=== PATIENT | male | born 1970 | race African-American/Black ===

== ENCOUNTER 2016-05-07 14:34 | Emergency (ER) | payer OTHER ==
[~2016-05-07] VITALS: Ht 170.2 cm; Wt 132.4 kg
--- NOTE | 2016-05-07 15:41 | ED CARDIAC/CP/PALPITATIONS ---
History of Present Illness General Chief Complaint: Chest Pain Stated Complaint: CHEST PAIN, PALPITAIONS Source: patient, old records Exam Limitations: no limitations Vital Signs & Intake/Output Vital Signs & Intake/Output ED Intake and Output 05/08 0000 05/07 1200 Intake Total Output Total Balance Patient 292 lb Weight Allergies Coded Allergies: NO KNOWN ALLERGIES (03/20/13) Reconcile Medications Mometasone Furoate (Nasonex) 50 MCG SPRAY.PUMP 1 SPRAY NASB DAILY ALLERGY ( Reported) Montelukast Sodium 10 MG TABLET 1 TAB PO DAILY ALLERGY (Reported) Phenytoin Sodium Extended 100 MG CAPSULE 1 CAP PO TID N (Reported) Triage Note: PT STATES THAT WHILE AT WORK SITTING AT DESK HE HAD ABOUT 4 SHARP PAINS L SIDE CHEST AND THEN THEY STOPPED, STATES THAT HE STILL HAS A DULL PAIN L SIDE CHEST. DENIES SOB , AND PAIN IS NON RADIATING Triage Nurses Notes Reviewed? yes Onset: Abrupt Duration: day(s): (2), better, intermittent, waxing and waning Timing: single episode today Quality/Severity: mild, dull Location: LEFT SIDED Radiation: no radiation Activities at Onset: none Prior Chest Pain/Card Workup: no prior chest pain Aspirin Today: no aspirin today Associated Symptoms: DENIES HPI: This is a 46-year-old male with history of seizure disorder status post TBI presents emergency room after he developed sudden onset of left-sided chest wall pain described as dull and aching pain that was nonradiating. There are no associated symptoms symptoms got better after a few minutes however states since then he's continued to have a mild dull pain. There is no arm neck or back pain no pain with inspiration no shortness of breath no abdominal pain nausea vomiting or diarrhea. He states he had a similar episode when he was 7 years old for which she came to the emergency room and states everything was okay. No family history of sudden cardiac disease. No recent immobility cough or hemoptysis no leg pain or swelling He does not smoke no drug use (BRIDGETTE WILKES,TITA) Past History Travel History Traveled to [place] past 21 day No Medical History Any Pertinent Medical History? see below for history Neurological: seizure EENT: allergies Cardiovascular: NONE Respiratory: NONE Gastrointestinal: NONE Hepatic: NONE Renal: NONE Musculoskeletal: NONE Blood Disorders: NONE Cancer(s): NONE OCCUPATIONAL THERAPY DIRECTOR/Reproductive: NONE Surgical History Surgical History: non-contributory Psychosocial History What is your primary language Peruvian Tobacco Use: Never used ETOH Use: denies use Illicit Drug Use: denies illicit drug use Family History Hx Contributory? No (TITA HORTON) Review of Systems Review of Systems Constitutional: Reports: see HPI. All Other Systems: Reviewed and Negative Comments Review of systems: See HPI, All other systems negative. Constitutional, no chills no fever, no malaise HEENT:no sore throat no congestion, no ear pain Cardiovascular: chest pain , no palpitation , no orthopnea no ankle swelling Skin, no jaundice no rashes, no change in skin Respiratory: No dyspnea no cough no sputum GI: No nausea no vomiting, no diarrhea, : No dysuria Muscle skeletal: No joint pain, no joint swelling, no back pain Neurologic: No numbness no headache Psych: No stress Heme/endocrine: No bruising no bleeding Immunology: No lymphadenopathy, (TITA HORTON) Physical Exam Physical Exam General Appearance: well developed/nourished, no apparent distress, alert, awake Cardiovascular: regular rate/rhythm Comments: Well-developed well-nourished person in no acute distress HEENT: Normal EENT exam; PERRL, EOMI. HEAD is atraumatic. moist mucous membranes. Neck: Supple, no lymphadenopathy, normal range of motion Back: Nontender,. Full range of motion Cardiovascular: Regular rate and rhythms no murmurs rubs or gallops, normal JVP Respiratory: Chest nontender.There were no bony deformities, no asymmetry. No respiratory distress. Patient speaking in full complete sentences. Breath sounds clear to auscultation bilaterally: NO W/R/R Abdomen: Soft, nontender nondistended Extremity: No edema, full range of motion of extremities, Neuro: Alert oriented x3, motor sensory normal. There were no obvious focal neurologic abnormalities. Skin: No appreciable rash on exposed skin, skin is warm and dry. Psych: Mood and affect is normal, memory and judgment is normal. Core Measures ACS in differential dx? Yes Severe Sepsis Present: No Septic Shock Present: No All Positive = PERC Ruled Out: Positive: age < 50 years, heart rate < 100 bpm, O2 sat > 94%, no hemoptysis, no hormone use, no prior DVT or PE, no unilateral leg swellin, no surgery/trauma w/ in 4w. (TITA HORTON) Progress Differential Diagnosis: AMI, aortic dissection, atrial fibrillation, costochondritis, hyperventilation, musculoskeletal pain, pancreatitis, pericarditis, pneumonia, pneumothorax, PSVT, pulmonary embolism, PUD/GERD, PVCs/ PACs, unstable angina Plan of Care: Orders Procedure Date/time Status TROPONIN LEVEL 05/07 151 Complete COMPREHENSIVE METABOLIC PANEL 05/07 151 Complete CBC WITHOUT DIFFERENTIAL 05/07 151 Complete EKG 05/07 1435 Active Laboratory Tests 05/07/16 1517: Anion Gap 10, Estimated GFR > 60, BUN/Creatinine Ratio 12.2, Glucose 76, Calcium 9.3, Total Bilirubin 0.4, AST 19, ALT 28, Alkaline Phosphatase 109, Troponin I < 0.01, Total Protein 7.5, Albumin 4.2, Globulin 3.3, Albumin/Globulin Ratio 1.3, CBC w Diff NO MAN DIFF REQ, RBC 4.74, MCV 85.2, MCH 28.3, RDW 14.4, MPV 8.2, Gran % 59.2, Lymphocytes % 25.4, Monocytes % 11.9 H, Eosinophils % 3.2, Basophils % 0.3, Absolute Granulocytes 4.1, Absolute Lymphocytes 1.8, Absolute Monocytes 0.8 H, Absolute Eosinophils 0.2, Absolute Basophils 0, PUBS MCHC 33.3 Initial ED EKG: normal sinus at 90, no acute ST segment changes normal axis (TITA HORTON) Departure Departure Time of Disposition: 1617 Disposition: HOME OR SELF CARE Condition: Stable Clinical Impression Primary Impression: Atypical chest pain Referrals: Randi TORRES MD, MD,BOBBY (PCP/Family) Additional Instructions: Follow-up with mental hygienist Dr. Torres as well as your primary care physician this week. Return to emergency room anytime sooner with any concerns Departure Forms: Customer Survey General Discharge Information (TITA HORTON) PA/CYLINDER PRESS OPERATOR APPRENTICE Co-Sign Statement Statement: ED Attending supervision documentation- [] I saw and evaluated the patient. I have also reviewed all the pertinent lab results and diagnostic results. I agree with the findings and the plan of care as documented in the PA's/CYLINDER PRESS OPERATOR APPRENTICE's documentation. x I have reviewed the ED Record and agree with the PA's/CYLINDER PRESS OPERATOR APPRENTICE's documentation. [] Additions or exceptions (if any) to the PAs/CYLINDER PRESS OPERATOR APPRENTICE's note and plan are summarized below: [] (LIBRA MARCUM,KAVIN) Critical Care Note Critical Care Note Critical Care Time: non-applicable (TITA HORTON) ED Attending Observation Initial Observation Note: I have seen and personally examined JULIETH DUNCAN on 05/07/16 at 1734. I agree with the current emergency department documentation. The disposition (admission or discharge) is uncertain at this time, he needs a period of observation for the following reason(s): The ED Nurse caring for this patient has been personally informed as to what the patient is being observed for. (TITA HORTON)
[2016-05-07 15:55] LABS: ABSOLUTE BASOPHIL COUNT 0 /CUMM (0.0-0.2); ABSOLUTE EOSINOPHIL COUNT 0.2 /CUMM (0.0-0.7); ABSOLUTE GRANULOCYTE CT 4.1 /CUMM (1.4-6.5); ABSOLUTE LYMPH COUNT 1.8 /CUMM (1.2-3.4); ABSOLUTE MONOCYTE COUNT 0.8 /CUMM (0.10-0.60); BASOPHIL % 0.3 % (0.0-2.0); EOSINOPHIL % 3.2 % (0-5); GRANULOCYTE % 59.2 % (42.2-75.2); HEMATOCRIT 40.3 % (42-52); MEAN CORPUSCULAR HGB 28.3 PG (27.0-31.0); MEAN CORPUSCULAR HGB CONC 33.3 G/DL (33.0-37.0); MEAN CORPUSCULAR VOLUME 85.2 FL (80.0-94.0); MEAN PLATELET VOLUME 8.2 FL (7.4-10.4); PLATELET COUNT 342 /CUMM (130-400); RBC DISTRIBUTION WIDTH 14.4 % (11.5-14.5); RED BLOOD CELL CT 4.74 /CUMM (4.70-6.10)
[2016-05-07] MEDS ORDERED: NASONEX17 GM NASB (16:26)
[2016-05-07] MEDS ORDERED: MONTELUKAST SOD10 M1 PO (16:26)
[2016-05-07] MEDS ORDERED: PHENYTOIN SODI100 MG PO (16:26)
[2016-05-07 16:27] VITALS: BP 156/90
== END 2016-05-07 16:28 ==
LOC: ERH 14:34
PROVIDERS: Physician Assistant Medical
DX: R07.89 Other chest pain (principal)
CPT/HCPCS: 93005; 93010